=== PATIENT | female | born 1985 | race Caucasian/White ===

== ENCOUNTER 2017-03-09 17:23 | Emergency (ER) | payer OTHER ==
[~2017-03-09] VITALS: Ht 154.9 cm; Wt 61.4 kg
[~2017-03-09 17:23] MED LIST: NO HOME MEDICATIONS; PERCOCET 325 MG1 TA2 PO
[2017-03-09 17:29] VITALS: BP 148/60; TEMP 99.3
[2017-03-09] MEDS ORDERED: MEDROL 4MG DOSPA4 MG PO (18:24)
[2017-03-09] MEDS ORDERED: PERCOCET 325 MG1 TA2 PO (18:24)
[2017-03-09 18:34] VITALS: PULSE 68
== END 2017-03-09 18:39 | disposition home or self-care (01) ==
LOC: COL.ER 17:23
DX: M76.61 Achilles tendinitis, right leg (principal); F17.210 Nicotine dependence, cigarettes, uncomplicated; X50.1XXA Overexertion from prolonged static or awkward postures, initial encounter
CPT/HCPCS: J7512

== ENCOUNTER 2017-08-19 11:16 | Emergency (ER) | payer BC ==
[~2017-08-19] VITALS: Ht 154.9 cm; Wt 61.4 kg
[~2017-08-19 11:16] MED LIST changes: +MEDROL 4MG DOSPA4 MG PO
[2017-08-19 14:30] VITALS: BP 146/68; PULSE 72; TEMP 98.3
== END 2017-08-19 14:30 | disposition home or self-care (01) ==
LOC: COL.ER 11:16
DX: J10.1 Influenza due to other identified influenza virus with other respiratory manifestations (principal); F17.210 Nicotine dependence, cigarettes, uncomplicated

== ENCOUNTER 2018-07-04 14:11 | Emergency (ER) | payer BC ==
[~2018-07-04] VITALS: Ht 154.9 cm; Wt 60.9 kg
[2018-07-04 14:17] VITALS: TEMP 97.9
[2018-07-04 17:49] LABS: COLLECTION METHOD CLEAN CATCH
[2018-07-04 18:07] LABS: AMORPHOUS CRYSTAL Present /uL; MUCOUS Present /lpf; PH 8 (5-8); URINE APPEARANCE Cloudy; URINE BACTERIA None Seen /hpf; URINE BILIRUBIN Negative (NEGATIVE); URINE BLOOD Negative (NEGATIVE); URINE COLOR Yellow; URINE GLUCOSE Negative (NEGATIVE); URINE KETONE Negative (NEGATIVE); URINE LEUKOCYTE ESTERASE Negative (NEGATIVE); URINE NITRATE Negative (NEGATIVE); URINE PROTEIN(semi-quant) Negative (NEGATIVE)
[2018-07-04 18:31] LABS: BASO # 0.1 (0.0-0.2); BASO % 1.2 % (0.0-2.0); EOS # 0.3 (0.0-0.7); EOS % 3.9 % (0-4.0); HEMATOCRIT 38.8 % (37.0-47.0); HEMOGLOBIN 13.6 g/dl (12.5-16.0); LYMPH # 2.4 (1.2-3.4); LYMPH % 28.3 % (20.0-51.0); MEAN CELL VOLUME 92 fl (80.0-100.0); MEAN CORPUSCULAR HEMOGLOBIN 32 pg (27.0-31.0); MEAN CORPUSCULAR HGB CONC 35 g/dl (33.0-37.0); MEAN PLATELET VOLUME 9.7 fl (7.4-10.4); MONO # 0.6 (0.1-0.6); MONO % 7.4 % (1.7-9.3); PLATELET COUNT 239 K/mm3 (130-400); RED BLOOD COUNT 4.23 M/mm3 (4.10-5.30); REDCELL DISTRIBUTION WIDTH-CV 11.9 % (11.5-14.5)
[2018-07-04 18:43] LABS: ALANINE AMINOTRANSFERASE 76 U/L (9-52); ALBUMIN 3.6 gm/dL (3.5-5.0); ALKALINE PHOSPHATASE 55 U/L (50-136); ANION GAP 4 mmol/L (7-16); AST,SGOT 49 U/L (15-37); BILIRUBIN,TOTAL 0.6 mg/dL (0.0-1.0); BLOOD UREA NITROGEN 13 mg/dL (7-17); CALCIUM 8.9 mg/dL (8.4-10.2); CARBON DIOXIDE 26 mmol/L (22-30); CHLORIDE 108 mmol/L (98-107); CREATININE, serum 0.65 mg/dL (0.52-1.25); GLUCOSE 89 mg/dL (74-106); POTASSIUM 3.9 mmol/L (3.4-5.0); SODIUM 138 mmol/L (137-145); TOTAL PROTEIN 6.4 gm/dL (6.4-8.2)
[2018-07-04 18:55] LABS: TROPONIN-I < 0.012 ng/mL (0.000-0.034)
[2018-07-04 20:07] VITALS: BP 122/83; PULSE 56
== END 2018-07-04 20:08 | disposition home or self-care (01) ==
LOC: COL.ER 14:11
PROVIDERS: Physician Assistant
DX: R07.89 Other chest pain (principal); R74.0 Nonspecific elevation of levels of transaminase and lactic acid dehydrogenase [LDH]; F17.210 Nicotine dependence, cigarettes, uncomplicated
CPT/HCPCS: J1885

== ENCOUNTER 2019-08-25 10:49 | Outpatient (RCR) | payer OTHER | END 2019-11-23 | disposition home or self-care (01) | LOC: WSOH | DX: S46.812A Strain of other muscles, fascia and tendons at shoulder and upper arm level, left arm, initial encounter (principal); Y99.0 Civilian activity done for income or pay ==

== ENCOUNTER 2019-10-29 21:18 | Emergency (ER) | payer BC ==
[~2019-10-29] VITALS: Ht 157.5 cm; Wt 68.2 kg
[2019-10-29 21:37] VITALS: TEMP 96.7
[2019-10-29 21:51] LABS: BASO # 0.1 (0.0-0.2); BASO % 1.2 % (0.0-2.0); EOS # 0.4 (0.0-0.7); EOS % 3.8 % (0-4.0); GRAN # 6.1 (1.4-6.5); GRAN % 52.6 % (42.2-75.2); HEMATOCRIT 44.4 % (37.0-47.0); HEMOGLOBIN 15.3 g/dl (12.5-16.0); LYMPH % 34.9 % (20.0-51.0); MEAN CELL VOLUME 94 fl (80.0-100.0); MEAN CORPUSCULAR HEMOGLOBIN 32 pg (27.0-31.0); MEAN CORPUSCULAR HGB CONC 35 g/dl (33.0-37.0); MEAN PLATELET VOLUME 10.2 fl (7.4-10.4); MONO # 0.8 (0.1-0.6); MONO % 7.2 % (1.7-9.3); PLATELET COUNT 285 K/mm3 (130-400); RED BLOOD COUNT 4.73 M/mm3 (4.10-5.30); REDCELL DISTRIBUTION WIDTH-CV 12.2 % (11.5-14.5)
[2019-10-29 22:21] LABS: ALANINE AMINOTRANSFERASE 112 U/L (4-34); ALBUMIN 4.3 gm/dL (3.5-5.0); ALKALINE PHOSPHATASE 78 U/L (50-136); ANION GAP 11 mmol/L (7-16); AST,SGOT 83 U/L (15-37); BILIRUBIN,TOTAL 0.4 mg/dL (0.0-1.0); BLOOD UREA NITROGEN 15 mg/dL (7-17); CALCIUM 8.6 mg/dL (8.4-10.2); CARBON DIOXIDE 20 mmol/L (22-30); CHLORIDE 116 mmol/L (98-107); CREATININE, serum 0.74 (0.52-1.25); GLUCOSE 121 mg/dL (74-106); POTASSIUM 3.9 mmol/L (3.4-5.0); SODIUM 147 mmol/L (137-145); TOTAL PROTEIN 7.6 gm/dL (6.4-8.2)
[2019-10-29 22:22] LABS: ACETAMINOPHEN < 10 ug/mL (10-30); SALICYLATE < 1.0 mg/dL
[2019-10-29 22:29] LABS: ALCOHOL(ethanol),MEDICAL 379 mg/dL
[2019-10-30 06:45] VITALS: BP 115/75; PULSE 84
== END 2019-10-30 08:00 | disposition home or self-care (01) ==
LOC: COL.ER 21:18
PROVIDERS: Emergency Medicine
DX: F10.129 Alcohol abuse with intoxication, unspecified (principal)
CPT/HCPCS: J1630; J2250; J2405; J7030

== ENCOUNTER → 2020-01-03 | Outpatient (CLI) | payer BC | LOC: ZCOL.LAB 16:00 | DX: Z20.828 Contact with and (suspected) exposure to other viral communicable diseases (principal) ==

== ENCOUNTER 2020-10-11 20:26 | Emergency (ER) | payer BC ==
[~2020-10-11] VITALS: Ht 154.9 cm; Wt 63.6 kg
[2020-10-11 20:36] VITALS: TEMP 98.1
[2020-10-11 21:04] LABS: BASO # 0.1 (0.0-0.2); EOS # 0.2 (0.0-0.7); EOS % 2.7 % (0-4.0); GRAN # 5.1 (1.4-6.5); GRAN % 65.4 % (42.2-75.2); HEMATOCRIT 43.9 % (37.0-47.0); HEMOGLOBIN 15.2 g/dl (12.5-16.0); LYMPH # 1.5 (1.2-3.4); LYMPH % 19.7 % (20.0-51.0); MEAN CELL VOLUME 93 fl (80.0-100.0); MEAN CORPUSCULAR HEMOGLOBIN 32 pg (27.0-31.0); MEAN CORPUSCULAR HGB CONC 35 g/dl (33.0-37.0); MEAN PLATELET VOLUME 9.9 fl (7.4-10.4); MONO # 0.9 (0.1-0.6); MONO % 11.1 % (1.7-9.3); PLATELET COUNT 242 K/mm3 (130-400); RED BLOOD COUNT 4.74 M/mm3 (4.10-5.30); REDCELL DISTRIBUTION WIDTH-CV 11.8 % (11.5-14.5)
[2020-10-11 21:14] LABS: ALBUMIN 4.2 gm/dL (3.5-5.0); BILIRUBIN,TOTAL 0.4 mg/dL (0.0-1.0); CREATININE, serum 0.61 (0.52-1.25); POTASSIUM 3.5 mmol/L (3.4-5.0); TOTAL PROTEIN 7.6 gm/dL (6.4-8.2)
[2020-10-11] MEDS ORDERED: ZOFRAN ODT4 MG PO (22:24)
[2020-10-11 22:37] VITALS: BP 112/86; PULSE 74
== END 2020-10-11 22:40 | disposition home or self-care (01) ==
LOC: COL.ER 20:26
PROVIDERS: Emergency Medicine
DX: B34.9 Viral infection, unspecified (principal); K52.9 Noninfective gastroenteritis and colitis, unspecified; F17.210 Nicotine dependence, cigarettes, uncomplicated; Z20.822 Contact with and (suspected) exposure to COVID-19
CPT/HCPCS: J2405; J2550; J7030

== ENCOUNTER 2020-11-08 02:05 | Emergency (ER) | payer BC ==
[~2020-11-08] VITALS: Ht 154.9 cm; Wt 63.6 kg
[~2020-11-08 02:05] MED LIST changes: +ZOFRAN ODT4 MG PO
[2020-11-08] MEDS ORDERED: FLONASEALLERGY NS (03:28)
[2020-11-08 04:09] VITALS: BP 117/74; PULSE 64; TEMP 97.9
== END 2020-11-08 04:10 | disposition home or self-care (01) ==
LOC: COL.ER 02:05
DX: S02.2XXA Fracture of nasal bones, initial encounter for closed fracture (principal); W10.8XXA Fall (on) (from) other stairs and steps, initial encounter

== ENCOUNTER 2021-05-15 | Emergency (ER) | payer BC ==
[~2021-05-15] VITALS: Ht 154.9 cm; Wt 65.0 kg
[~2021-05-15] MED LIST changes: +FLONASEALLERGY NS
[2021-05-15 01:01] LABS: BASO # 0.1 K/mm3 (0.0-0.2); BASO % 1.1 % (0.0-2.0); EOS # 0.4 K/mm3 (0.0-0.7); GRAN # 4.3 K/mm3 (1.4-6.5); GRAN % 53.5 % (42.2-75.2); HEMATOCRIT 38.4 % (37.0-47.0); HEMOGLOBIN 13.7 g/dl (12.5-16.0); LYMPH # 2.5 K/mm3 (1.2-3.4); LYMPH % 30.9 % (20.0-51.0); MEAN CELL VOLUME 91 fl (80.0-100.0); MEAN CORPUSCULAR HEMOGLOBIN 33 pg (27.0-31.0); MEAN CORPUSCULAR HGB CONC 36 g/dl (33.0-37.0); MEAN PLATELET VOLUME 10.1 fl (7.4-10.4); MONO # 0.7 K/mm3 (0.1-0.6); MONO % 9.1 % (1.7-9.3); PLATELET COUNT 256 K/mm3 (130-400); RED BLOOD COUNT 4.21 M/mm3 (4.10-5.30); REDCELL DISTRIBUTION WIDTH-CV 11.8 % (11.5-14.5)
[2021-05-15 01:18] LABS: ALANINE AMINOTRANSFERASE 120 U/L (0-55); ALBUMIN 3.7 gm/dL (3.5-5.0); ALKALINE PHOSPHATASE 53 U/L (40-150); ANION GAP 8 mmol/L (7-16); AST,SGOT 78 U/L (5-34); BILIRUBIN,TOTAL 0.4 mg/dL (0.2-1.2); BLOOD UREA NITROGEN 11 mg/dL (7-19); CALCIUM 9.2 mg/dL (8.4-10.2); CARBON DIOXIDE 23 mmol/L (22-29); CHLORIDE 108 mmol/L (98-107); GLUCOSE 97 mg/dL (70-99); POTASSIUM 3.7 mmol/L (3.5-4.5); SODIUM 139 mmol/L (136-145); TOTAL PROTEIN 6.5 gm/dL (6.2-8.1)
[2021-05-15 01:18] LABS: COLLECTION METHOD CLEAN CATCH
[2021-05-15 01:23] LABS: MUCOUS Present (NOT PRESENT); PH 5 (5-8); URINE APPEARANCE Hazy (CLEAR/HAZY); URINE BACTERIA None Seen (NONE SEEN); URINE BILIRUBIN Negative (NEGATIVE); URINE BLOOD Negative (NEGATIVE); URINE COLOR Yellow (YELLOW); URINE GLUCOSE Negative (NEGATIVE); URINE KETONE Trace (NEGATIVE); URINE LEUKOCYTE ESTERASE Negative (NEGATIVE); URINE NITRATE Negative (NEGATIVE); URINE PROTEIN(semi-quant) Negative (NEGATIVE)
[2021-05-15 01:31] LABS: TRICYCLIC ANTIDEPRESS URINE NEGATIVE
[2021-05-15 01:38] LABS: THYROID STIMULATING HORMONE 1.694 uIU/mL (0.350-4.940); TROPONIN-I < 0.010 ng/mL (0.00-0.033)
[2021-05-15 02:54] VITALS: BP 148/87; PULSE 68; TEMP 97.9
== END 2021-05-15 02:54 | disposition home or self-care (01) ==
LOC: COL.ER
PROVIDERS: Nurse Practitioner
DX: R07.89 Other chest pain (principal); Z20.822 Contact with and (suspected) exposure to COVID-19

== ENCOUNTER 2021-06-10 20:49 | Emergency (ER) | payer BC ==
[~2021-06-10] VITALS: Ht 154.9 cm; Wt 65.0 kg
[2021-06-10 23:31] VITALS: BP 121/69; PULSE 79; TEMP 98.2
== END 2021-06-10 23:30 | disposition home or self-care (01) ==
LOC: COL.ER 20:49
DX: J06.9 Acute upper respiratory infection, unspecified (principal); F17.200 Nicotine dependence, unspecified, uncomplicated; Z20.822 Contact with and (suspected) exposure to COVID-19

== ENCOUNTER 2021-07-15 14:21 | Emergency (ER) | payer BC ==
[~2021-07-15] VITALS: Ht 154.9 cm; Wt 65.0 kg
[2021-07-15 15:11] VITALS: BP 113/78; PULSE 64; TEMP 98.2
== END 2021-07-15 17:14 | disposition left against medical advice (07) ==
LOC: COL.ER 14:21
DX: U07.1 COVID-19 (principal)

== ENCOUNTER 2023-07-13 13:06 | Emergency (ER) | payer BC ==
[~2023-07-13] VITALS: Ht 154.9 cm; Wt 68.2 kg
[~2023-07-13 13:06] MED LIST changes: +ANTIVERT 25MG25 MG PO
[2023-07-13 13:18] VITALS: TEMP 98.1
[2023-07-13] MEDS ORDERED: Ondansetron 4 MG/2 ML VIAL IV ONE (13:30)
[2023-07-13] MEDS ORDERED: NS 1,000 ML IV ONE (13:30)
[2023-07-13 13:47] LABS: BASO # 0.1 K/mm3 (0.0-0.2); BASO % 0.9 % (0.0-2.0); EOS # 0.3 K/mm3 (0.0-0.7); EOS % 2.9 % (0.0-4.0); GRAN # 7.8 K/mm3 (1.4-6.5); GRAN % 69.4 % (42.2-75.2); HEMATOCRIT 45.5 % (37.0-47.0); HEMOGLOBIN 15.9 g/dl (12.5-16.0); LYMPH # 2.2 K/mm3 (1.2-3.4); MEAN CELL VOLUME 93 fl (80.0-100.0); MEAN CORPUSCULAR HEMOGLOBIN 33 pg (27-31); MEAN CORPUSCULAR HGB CONC 35 g/dl (33.0-37.0); MEAN PLATELET VOLUME 10.6 fl (7.4-10.4); MONO # 0.7 K/mm3 (0.1-0.6); MONO % 6.5 % (1.7-9.3); PLATELET COUNT 259 K/mm3 (130-400); RED BLOOD COUNT 4.89 M/mm3 (4.10-5.30); REDCELL DISTRIBUTION WIDTH-CV 11.8 % (11.5-14.5)
[2023-07-13] MEDS ORDERED: droPERidol 2.5 MG/ML 2 ML VIAL IV ONE (14:00)
[2023-07-13 14:03] LABS: ALBUMIN 4.1 gm/dL (3.5-5.0); BILIRUBIN,TOTAL 0.6 mg/dL (0.2-1.2); CALCIUM 9.5 mg/dL (8.4-10.2); CREATININE, serum 0.83 mg/dL (0.57-1.11); POTASSIUM 3.6 mmol/L (3.5-4.5); TOTAL PROTEIN 7.5 gm/dL (6.2-8.1)
[2023-07-13 14:37] VITALS: BP 121/74; PULSE 70
== END 2023-07-13 14:43 | disposition home or self-care (01) ==
LOC: COL.ER 13:06
PROVIDERS: Physician Assistant
DX: R10.10 Upper abdominal pain, unspecified (principal); R10.84 Generalized abdominal pain; R11.2 Nausea with vomiting, unspecified
CPT/HCPCS: J1790; J2405; J7030

== ENCOUNTER → 2023-12-20 | Outpatient (CLI) | payer BC | LOC: COL.LAB 19:13 | DX: H92.11 Otorrhea, right ear (principal) ==

== ENCOUNTER → 2024-03-31 | Outpatient (CLI) | payer BC ==
[~2024-03-31] MED LIST changes: +Gadoterate 15 ML VIAL IV ONE
== END ==
LOC: COL.RAD 08:23
DX: M47.22 Other spondylosis with radiculopathy, cervical region (principal); M48.02 Spinal stenosis, cervical region; M25.78 Osteophyte, vertebrae
CPT/HCPCS: A9575

== ENCOUNTER → 2024-04-07 | Outpatient (CLI) | payer BC ==
[~2024-04-07] MED LIST changes: -Gadoterate 15 ML VIAL IV ONE
== END ==
LOC: COL.RAD 10:57
DX: K76.0 Fatty (change of) liver, not elsewhere classified (principal)